=== PATIENT | male | born 1990 | race American Indian/Alaskan Native ===

== ENCOUNTER 2019-08-22 17:00 | Emergency (ER) | payer SELFPAY ==
[~2019-08-22] VITALS: Ht 177.8 cm; Wt 88.0 kg
[2019-08-22] MEDS ORDERED: ERYTHROMYCIN BASE 0.5% OPHTH OINT 3.5GM RIGHTEYE ONE (20:00)
[2019-08-22 20:30] VITALS: BP 123/84
== END 2019-08-22 20:31 | disposition home or self-care (01) ==
LOC: ER 17:00
DX: H01.9 Unspecified inflammation of eyelid (principal); F84.0 Autistic disorder
CPT/HCPCS: 99282